=== PATIENT | female | born 1975 | race Caucasian/White ===

== ENCOUNTER → 2019-09-19 09:52 | Outpatient (CLI) | payer BC, SELFPAY ==
[2019-09-20 08:08] LABS: COVID19 Sendout Not Detected (Not Detect)
== END ==
PROVIDERS: Visit Provider Nurse Practitioner
DX: Z01.812 Encounter for preprocedural laboratory examination (principal)
CPT/HCPCS: 87635

== ENCOUNTER 2019-09-22 10:14 | Day surgery (SDC) | payer BC, SELFPAY ==
[2019-09-14 10:54] VITALS: BMI 50.9
[2019-09-22] VITALS (23 sets, daily range): BP systolic 114–152; BP diastolic 62–95; PULSE 73–107; RESP 10–25; TEMP 35.6–36.7; O2SAT 90–99; BMI 51.3
--- NOTE | 2019-09-22 | DI.RAD.S_ITS ---
PROCEDURE: XR CERVICAL SPINE 2V OR 3V INDICATIONS: C5-6 ACDF mobi C TECHNIQUE: 2 view(s) of the cervical spine were acquired. COMPARISON: None. FINDINGS: Bones: Immediate postoperative evaluation targeted at C5-C6 showing an articulated disc intervertebral disc prosthesis at this level, centrally positioned. Soft tissues: No prevertebral soft tissue swelling. IMPRESSION: Normal alignment established after anterior discectomy and intervertebral disc prosthesis placement at C5-6. Dictated by: Robles Chowdhury M.D. on 09/22/2019 at 13:28 Approved by: Robles Chowdhury M.D. on 09/22/2019 at 13:30
[2019-09-22] MEDS: LACTATED RINGERS 1,000 ML 42 ML IV (10:47)
--- NOTE | 2019-09-22 10:49 | P.HP_ITS ---
History of Present Illness History of Present Illness Date Patient Seen: 09/22/19 Time Patient Seen: 10:49 Chief complaint: Cervical Fusion Anterior *OPB* Narrative: 43-year-old female complaining of pain throughout her entire spine. She always has pain in the left side of her neck that now was been radiating into her left arm along the biceps to the palm of her hand. She gets numbness and tingling in the same distribution. She feels stiff in the neck and has limited range of motion. She also gets a sharp pain across the broad aligned the middle of the thoracic spine when her neck and thoracic pain increases she gets blurred vision. She denies bowel or bladder changes. She has been working with a chiropractor for years. Patient History Medical History Anxiety (Acute) Asthma (Acute) Depression (Acute) Eustachian tube disorder (Acute) Neck pain (Acute) Numbness and tingling (Acute) SUNNY on CPAP (Acute) Psoriasis (Acute) Seasonal allergies (Acute) Spinal arthritis (Acute) Surgical History History of bilateral tubal ligation (Acute 2006) History of tonsillectomy and adenoidectomy (Acute) Hx of breast reduction, elective (Acute 2010) Family & Social History Social History: household members significant other Prior Living Arrangements Apartment/Condo Safety & Behavioral: Feels Safe in Current Yes Environment Been Physically Hurt or No Threatened By a Person Suicidal Ideation Description None Suicide Plan Description No Plan Tobacco & Substance use: Smoking Status Never smoker alcohol intake former Substance Use Type does not use Meds Home Medications and Allergies Home Medications Medication Instructions Recorded Confirmed Type albuterol sulfate [ProAir HFA] 2 puff INHALATION Q4-6H PRN 09/14/19 09/22/19 History tevkefi-kwamhoncbkxne-enntfozw 3 tab PO DAILY 09/14/19 09/22/19 History [Excedrin Migraine] fluoxetine 60 mg PO BEDTIME 09/14/19 09/22/19 History montelukast 10 mg PO BEDTIME 09/14/19 09/22/19 History cholecalciferol (vitamin D3) 125 mcg PO DAILY 09/22/19 09/22/19 History [Vitamin D3] Allergies Allergy/AdvReac Type Severity Reaction Status Date / Time Penicillins Allergy Severe Hives Verified 09/22/19 10:38 Sulfa (Sulfonamide Allergy Mild Hives, Verified 09/22/19 10:38 Antibiotics) vomiting Review of Systems Constitutional Constitutional: Denies chills and Denies fever(s) Respiratory Respiratory: Denies cough Exam Const Orientation: alert and oriented x3 Resp Auscultation: clear to auscultation bilaterally Cardio Rate: regular rate Rhythm: regular rhythm Back/Spine/Pelvis Other: Tender along the left lower cervical paraspinals and superior trapezius. 5/5 motor both upper extremities except 4/5 left management trainee marketing. Decreased sensation left biceps and palm and middle finger. 2+ reflexes both upper extremities. Negative Adkins's. Objective Imaging Cervical x-rays: My impression: From 09/13/2018 shows collapse of the disc with kyphosis and anterior osteophytes at C5-6. 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 C3-4: Minimal disc bulge mild central stenosis. C4-5: Minimal disc bulge, no neural compression C5-6 large left-sided disc herniation with left- sided cord flattening moderate central and severe left foraminal stenosis. C6-7 and C7-T1 are open. Assessment & Plan Assessment & Plan narrative: Cervical disc herniation with radiculopathy. She has failed conservative management and has weakness in the arm. Plan is for a C5-6 anterior cervical diskectomy and artificial disc replacement. Morbid obesity with a BMI over 50. Due to her morbid obesity she is at higher risk of medical complications as well as airway issues with surgery. I plan on keeping her overnight because of this. This will also increase the difficulty of the surgery with increased time and deeper retractors with limited mobility. COVID-19 COVID-19 status: Negative Result date/Date tested (Pos, Neg/Pending): 09/19/19
--- NOTE | 2019-09-22 11:19 | P.OP_ITS ---
Operative Date/Time/Diagnoses Date of procedure: 09/22/19 Time of procedure: 12:57 Pre-op diagnosis: Cervical disc herniation with radiculopathy Morbid obesity, BMI greater than 50 Post-op diagnosis: same Procedure & Clinicians Procedure: C5-6 anterior cervical diskectomy and artificial disc replacement Use of microscope Same procedure as scheduled: Yes Indications: [age] year old female with intractable pain from cervical disc herniations. They had failed conservative management and requested operative intervention. Risks and benefits of surgery were discussed and appropriate consents were obtained. Surgeon: Casey Farmer Factory Hand: Sidra Wade Anesthesia Type: General Operative Notes Findings: None Closure Type: primary Specimen(s): none sent Prosthetic devices, grafts, tissues, transplants, or devices: Diana Mobi-C Estimated Blood Loss (mL): 5 Procedure in detail: Patient was brought to the operating room and intubated on the table. A time-out was performed. Preoperative antibiotics were given. The neck was prepped and draped in the standard sterile fashion. Using a skin fold, we made a 3 cm oblique incision on the left side. We used Bovie to go through the platysma and then did a standard anterolateral blunt dissection down to the precervical fascia. Fascia was nicked and elevated up. A marker was placed and x-ray was taken for localization. We then subperiosteally elevated up the longus colli muscles. Self-retaining retractors were placed. Grandview pins were placed under x-ray guidance to be parallel to the endplates. We then brought in the microscope. A scalpel used to perform an annulotomy. We then used a combination of pituitaries and curettes and Kerrison to perform a complete anterior diskectomy at C5-6. We took down the PLL and used Kerrison to remove any posterior disc material and osteophytes. At the end we could from the nerve hook cephalad caudally and out the foramen and everything was opened. We distracted open with the parallel special forces senior sergeant. We then used the horseshoes for sizing. We then used the trials. We then inserted 17 x 15 x 5 size Mobi-C artificial disc replacement under fluoroscopic guidance for positioning. The traction was released and x-ray was checked again. The self-retaining retractors and Grandview pins were removed and final x- rays taken. The wound was irrigated. There was no bleeding. The carotid was beating nicely. The platysma was closed. The superficial was closed. The skin was closed. A sterile dressing was placed. They were then extubated and brought to recovery room with no complications. Please note that due to the patient's morbid obesity we had a much more complex dissection for approach than normal. We used much deeper retractors than normal. This greatly limited our mobility working around the disc. We were a lso very limited in our visualization with fluoroscopy due to her body habitus. All this increased the complexity and risks of this case as well as increased the time by approximately 50%. She also will need to stay as an inpatient overnight for airway issues. Complications: none Post-operative Condition: stable Disposition: PACU Plan for aftercare: Overnight admission. Plan to discharge tomorrow.
[2019-09-22] MEDS: CLINDAMYCIN 900 MG/50 ML PIGGYBACK 50 MG IV ×2 (11:43→19:35)
--- NOTE | 2019-09-22 12:02 | SUR.OPER ---
Supine on padded OR bed, head on gel donut, arm padded and tucked at side, legs uncrossed, safety belt at thigh, tape over blanket over lower legs .
[2019-09-22] MEDS: BUPIVACAINE 0.25% W/ EPI 30 ML VIAL INJ (12:10)
[2019-09-22] MEDS: THROMBIN (RECOMBINANT) 5,000 UNIT VIAL 5000 UNIT TOP (12:10)
[2019-09-22] MEDS: SODIUM CHLORIDE 0.9% 1,000 ML, GENTAMICIN 80 MG IRR (12:11)
[2019-09-22] MEDS: HYDROMORPHONE 2 MG INJ IV ×2 (13:22→13:40)
[2019-09-22] MEDS: ONDANSETRON 4 MG/2 ML INJ IV (13:23)
[2019-09-22] MEDS: LACTATED RINGERS 1,000 ML 125 ML IV (14:42)
[2019-09-22] MEDS: METOCLOPRAMIDE 10 MG/2 ML INJ IV (14:56)
--- NOTE | 2019-09-22 15:33 | PC.NURSE ---
1430: Received patient from PACU, awake, alert, and pleasantly calm on O2 at 4L via NC. Soft collar in place, dressing to anterior neck, CDI. Oriented to room, environment, and plan of care. SCD placed upon arrival. VSS and afebrile. (Zeus) at bedside providing supportive care. Report given to Yuko BERNAL.
[2019-09-22] MEDS: NAPROXEN 250 MG TABLET 500 MG PO (16:58)
[2019-09-22] MEDS: SENNOSIDES 8.6 MG TABLET 17.2 MG PO (20:44)
[2019-09-22] MEDS: GABAPENTIN 300 MG CAPSULE PO (20:44)
[2019-09-22] MEDS: FLUoxetine 20 MG CAPSULE 60 MG PO (20:44)
[2019-09-22] MEDS: MONTELUKAST 10 MG TABLET PO (20:44)
[2019-09-22] MEDS: DOCUSATE 100 MG CAPSULE PO (20:44)
[2019-09-23] MEDS: LACTATED RINGERS 1,000 ML 125 ML IV (00:46)
[2019-09-23 04:15] VITALS: BP 117/89; PULSE 79; RESP 18; TEMP 36.7; O2SAT 96
[2019-09-23] MEDS: CLINDAMYCIN 900 MG/50 ML PIGGYBACK 50 MG IV (04:48)
[2019-09-23 07:00] VITALS: BP 122/70; PULSE 85; RESP 16; TEMP 36.7; O2SAT 97
--- NOTE | 2019-09-23 08:09 | PM.PNPO.1 ---
Subjective Subjective Date Patient Seen: 09/23/19 Time Patient Seen: 08:09 Interval history: She is doing very well. Neck pain is mild and under control. No problems swallowing. Arms feel good. Exam Vital Signs (past 8 hours): - 09/23/19 04:15 Temperature 98.0 F Pulse Rate 79 Respiratory Rate 18 Blood Pressure 117/89 Pulse Oximetry 96 Oxygen Delivery Method Nasal Cannula Oxygen Flow Rate 1 Const Orientation: alert and oriented x3 Back/Spine/Pelvis Other: CDI. 5/5 motor both upper extremities. Assessment & Plan Post-op Postoperative Procedures: Procedures Operation Date: 09/22/19 12:15 Actual Procedures Side Surgeon p C56 anterior cervical discectomy and artificail disc replacement Casey Farmer MD she is doing well. Plan to discharge home today.
[2019-09-23] MEDS: NAPROXEN 250 MG TABLET 500 MG PO (09:37)
[2019-09-23] MEDS: CHOLECALCIFEROL (VITAMIN D3) 5,000 UNIT TABLET 5000 UNIT PO (09:37)
[2019-09-23] MEDS: DOCUSATE 100 MG CAPSULE PO (09:37)
--- NOTE | 2019-09-23 09:39 | OT.IP.EVAL ---
Current Diagnoses Morbid (severe) obesity due to excess calories (09/22/19) Spondylosis without myelopathy or radiculopathy, lumbar region (09/22/19) Other cervical disc displacement, unspecified cervical region (09/22/19) Other intervertebral disc degeneration, thoracic region (09/22/19) Surgery Performed Operation Date: 09/22/19 12:15 Actual Procedures p C56 anterior cervical discectomy and artificail disc replacement - Casey Farmer MD Past Medical History (Last Updated 09/22/19 @ 13:53 by Lu Esquivel RN) Anxiety (Acute) Asthma (Acute) Depression (Acute) Eustachian tube disorder (Acute) Neck pain (Acute) Numbness and tingling (Acute) Obesities, morbid (Acute) Obesity (Acute) SUNNY on CPAP (Acute) Psoriasis (Acute) Seasonal allergies (Acute) Spinal arthritis (Acute) Surgical History (Last Reviewed 09/22/19 @ 10:50 by Casey Farmer MD) History of bilateral tubal ligation (Acute 2006) History of tonsillectomy and adenoidectomy (Acute) Hx of breast reduction, elective (Acute 2010) Occupational Therapy Inpatient Evaluation/Re-Eval M1 PT/OT-IP Prior Functional Status Start: 09/23/19 08:22 Freq: NEEDED Status: Active Protocol: Document 09/23/19 10:28 CGR (Rec: 09/23/19 10:36 CGR [email or web address]) Medical Review Prior Functional Status Medical History Reviewed Yes Communication Pt is an effective verbal communicator. Mobility and Gait Pt was IND for all functional mobility prior to admit. Activities of Daily Living and IADL's Pt states she was IND for all ADLs but used a shower chair for bathing. Social History Household Members significant other Living Arrangements Apartment/Condo Number of Floors (Floors) One Floor Number of Stairs To Enter/Railing? Pt has 15 stairs up to the second floor. 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 M2 OT-IP Current Condition Start: 09/23/19 10:28 Freq: Status: Active Protocol: Document 09/23/19 10:28 CGR (Rec: 09/23/19 10:36 CGR [email or web address]) Occupational Therapy Current Condition Current Condition Evaluation Date 09/23/19 Treatment Diagnosis C6 ACDF Diagnosis Onset Date 09/22/19 Post Operative Precautions Cervical Spine Precautions Soft Collar for Comfort,No Heavy Lifting,Log Roll M3 OT- IP Subjective and Pain Start: 09/23/19 10:28 Freq: Status: Active Protocol: Document 09/23/19 10:28 CGR (Rec: 09/23/19 10:36 CGR [email or web address]) OT- Subjective Occupational Therapy Visit Type Type Initial Evaluation Visit Start Time 09:16 Visit Stop Time 09:39 Total Visit Minutes 23 Notes Pt getting dressed as OT entered Occupational Therapy Visit Comments Patient Comments I am ready to go home. OT Pain Assessment Pain When Pain Assessed During Mobility Pain Present Pain Present Pain Reported Location Anterior Neck Intensity 1 Scale Used Numeric (0 - 10) Management Techniques Modification of Treatment,Re- positioning,Timing of Activity with Medications M4 OT- IP ADL's Start: 09/23/19 10:28 Freq: Status: Active Protocol: Document 09/23/19 10:28 CGR (Rec: 09/23/19 10:36 CGR [email or web address]) OT SOC-Ovgg-Bkgnflz Comments OT Self-Feeding Comments Not meal time OT ADL-Grooming General Evaluation Grooming Ability Independent Comments OT Grooming Comments Simulated standing at sink OT ADL-Oral Care General Eval Oral Care Ability Independent Comments Oral Care Comments Simulated standing at sink OT ADL-Dressing General Eval Upper Body Dressing Ability Independent Lower Body Dressing Ability Independent Areas Needing Assistance Retrieving/Set-up of Clothing, Underpants/Brief,Pants/Shorts, Socks Comments OT Dressing Comments Pt donned sitting in chair and sitting EOB for socks. OT ADL-Toileting General Evaluation Toileting Ability Independent Comments OT Toileting Comments Simulated seated on toilet OT ADL-Bathing Comments OT Bathing Comments not performed M5 OT- IP IADL's Start: 09/23/19 10:28 Freq: Status: Active Protocol: Document 09/23/19 10:28 CGR (Rec: 09/23/19 10:36 CGR [email or web address]) OT-Instrumental Activities of Daily Living Deficits IADL Deficits Identified No Deficits Home Safety Awareness Awareness of Need for Assistance at Home Good Awareness Ability to Problem Solve Emergency Able to Problem Solve Situations Medication Management Medication Management No Deficits Identified Money Management Money Management No Deficits Identified Meal Preparation Meal Preparation No Deficits Identified Tanning Drum Operator Tanning Drum Operator No Deficits Identified Driving Driving Caregiver Provides Assist M6 OT- IP Functional Cognition Start: 09/23/19 10:28 Freq: Status: Active Protocol: Document 09/23/19 10:28 CGR (Rec: 09/23/19 10:36 CGR [email or web address]) Cognitive Factors Limiting Selfcare Function Cognitive Ability Level of Alertness Alert Patient Orientation Name,Age,Birthday,Month,Date, Year,Day of Week,Place, Situation Attention Span Ability Capable of Focused Attention, Capable of Sustained Attention Ability to Follow Commands Able to Follow Multi-Step Commands Memory Description No Deficits Noted Safety Awareness No Deficits Noted Problem Solving Ability No deficits Noted Executive Function Ability No Deficits Noted Abstract Thinking Ability No Deficits Noted OT- Vision and Hearing OT- Hearing Assessment OT- Hearing Assessment WFL OT- Vision Assessment Visual Acuity Glasses All The Time Visual Attentiveness WFL Occular Pursuits WFL Visual Convergence WFL M7 OT- IP Mobility and Balance Start: 09/23/19 10:28 Freq: Status: Active Protocol: Document 09/23/19 10:28 CGR (Rec: 09/23/19 10:36 CGR [email or web address]) OT- Bed Mobility Assessment Rolling Type of Rolling Log Rolling,Roll to Right,Roll to Left Level of Assistance Independent Supine to Sit Supine to Sit Assist Independent Sit to Supine Sit to Supine Assist Independent Scooting Scooting to Edge of Bed Independent OT-Transfer Assessment Sit to and From Stand Sit to and from Stand Independent Transfers Transfer Ability Independent Technique Transfer Destination Bed,Chair,Toilet Transfer Technique Stand Step Pivot Comments Mobility Comments Pt mobilized aorund the room and bathroom without assist safely OT- Balance Assessment Sitting Balance and Reactions Static Sitting Balance Ability Normal Dynamic Sitting Balance Ability Normal M8 OT- IP Objective Assessments Start: 09/23/19 10:28 Freq: Status: Active Protocol: Document 09/23/19 10:28 CGR (Rec: 09/23/19 10:36 CGR [email or web address]) OT Gross Range of Motion Upper Extremity Range of Motion Assessment Within Functional Limits OT Strength Upper Extremity Strength Assessment Within Functional Limits Comments Strength Comments Grossly 4+/5 OT- Coordination Assessment Upper Extremity Finger to Nose Test Within Functional Limits Finger Tapping Test Within Functional Limits OT-Muscle Tone Assessment Muscle Tone WNL Yes OT Sensation Assessment Edema Edema Absent M9 OT- IP Assessment and Plan Start: 09/23/19 10:28 Freq: Status: Active Protocol: Document 09/23/19 10:28 CGR (Rec: 09/23/19 10:36 CGR [email or web address]) OT Summary Assessment and Plan Potential Rehabilitation Potential Excellent Analytic Complexity at Evaluation Low Summary OT Impairments Pain Progress Towards Goals Safe For Discharge,Goals Met Assessment Summary Pt presents as a low complexity evaluation. Pt states she feels better than prior to sx. No further OT needs. Frequency of Treatment Frequency Of Treatment Discharge Discharge Recommendations OT Discharge Recommendations Home Transportation Needs at Discharge Private Vehicle
--- NOTE | 2019-09-23 10:56 | PT.IIE ---
Current Diagnoses Morbid (severe) obesity due to excess calories (09/22/19) Spondylosis without myelopathy or radiculopathy, lumbar region (09/22/19) Other cervical disc displacement, unspecified cervical region (09/22/19) Other intervertebral disc degeneration, thoracic region (09/22/19) Surgery Performed Operation Date: 09/22/19 12:15 Actual Procedures p C56 anterior cervical discectomy and artificail disc replacement - Casey Farmer MD Surgical History (Last Reviewed 09/22/19 @ 10:50 by Casey Farmer MD) History of bilateral tubal ligation (Acute 2006) History of tonsillectomy and adenoidectomy (Acute) Hx of breast reduction, elective (Acute 2010) Medical History (Last Updated 09/22/19 @ 13:53 by Lu Esquivel RN) Anxiety (Acute) Asthma (Acute) Depression (Acute) Eustachian tube disorder (Acute) Neck pain (Acute) Numbness and tingling (Acute) Obesities, morbid (Acute) Obesity (Acute) SUNNY on CPAP (Acute) Psoriasis (Acute) Seasonal allergies (Acute) Spinal arthritis (Acute) Physical Therapy Inpatient Evaluation/Re-Eval M1 PT/OT-IP Prior Functional Status Start: 09/23/19 08:22 Freq: NEEDED Status: Discharge Protocol: Document 09/23/19 10:42 (Rec: 09/23/19 10:56 [email or web address]) Medical Review Prior Functional Status Medical History Reviewed Yes Diet/Fluid Consistency Regular Communication Pt is an effective verbal communicator. Mobility and Gait Pt was IND for all functional mobility prior to admit. Activities of Daily Living and IADL's Pt states she was IND for all ADLs but used a shower chair for bathing. She has difficulty to reach down for pericare after toileting and has a weak medical services assistant in general. Significant other tends to assist if needed. Social History Household Members significant other Living Arrangements Apartment/Condo Number of Floors (Floors) One Floor Number of Stairs To Enter/Railing? 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 She lives with her significant other Zeus who is going to take a week off to assist pt. Pt also has a 18 yo step son who lives with them. M2 PT-IP Current Condition Start: 09/23/19 08:22 Freq: NEEDED Status: Discharge Protocol: Document 09/23/19 10:42 (Rec: 09/23/19 10:56 [email or web address]) Physical Therapy Current Condition Current Condition Evaluation Date 09/23/19 Treatment Diagnosis ACDF C5-6, tingling and numbness on L side Onset Date 09/22/19 Precautions Cervical Spine Precautions Soft Collar for Comfort,Rigid Collar,No Heavy Lifting,Log Roll Weight Bearing Status Weight Bearing Status Full Weight Bearing M3 PT-IP Subjective Start: 09/23/19 08:22 Freq: NEEDED Status: Discharge Protocol: Document 09/23/19 10:42 (Rec: 09/23/19 10:56 [email or web address]) Subjective Physical Therapy Visit Type Type Initial Evaluation Visit Start Time 08:45 Visit Stop Time 09:16 Total Visit Minutes 31 Number of SLATE ROOFER HELPER Visits 0 Physical Therapy Visit Comments Patient Comments Pt denies neck pain but with residual numbness to L arm Patient Goals to return home with S.O. Therapy Pain Assessment Pain When Pain Assessed During Mobility Pain Present Pain Present Denied Pain M4 PT-IP Mobility and Gait Start: 09/23/19 08:22 Freq: NEEDED Status: Discharge Protocol: Document 09/23/19 10:42 (Rec: 09/23/19 10:56 [email or web address]) PT-Bed Mobility Assessment Rolling Type of Rolling Log Rolling,Roll to Right Level of Assist Standby Assistance Supine to Sit Supine to Sit Standby Assistance Scooting Scooting to Edge of Bed Standby Assistance PT-Transfer Assessment Sit to and From Stand Sit to and from Stand Standby Assistance,Use of Upper Extremities Equipment Transfer Assistive Device None Orthotic/Prosthetic Devices or Brace: Yes Transfers Transfer Destination Bed,Chair Transfer Technique Stand Step Pivot Transfer Ability Level of Assist Independent,Standby Assistance ,Use of Upper Extremities Comments Mobility Comments Pt was in bed upon PT arrival. BP at 131/ 76 SpO2 94 % HR 87 . Pt denied pain/ discomfort except residual numbness on L arm. Pt has slight overall weakness on L shoulder but sensation test was intact to pressure and light touch. She was able to log roll to R side and push up from sidelying position and sat at EOB with SBA. She then stood up without using arms and amb to sink counter for soft collar fitting. She was able to travis/ doff with proper fitting without standing support. She then walked around [facility] and completed 15 steps with R rail up and L rail down SBA. Pt appeared to be very steady and WFL gait speed. She returned to her room and sat in chair comfortably. Vitals remain normal HR went up to 116 with slight SOB. Pt is safe to be d /c home at this point. Gait Assessment Gait Gait Assistance Required: Standby Assistance Distance (Feet) 360 Able to Maintain Weight Bearing Status Yes During Gait Assistive Devices Assistive Device None Orthotic/Prosthetic Devices or Brace: Yes Gait Deviations General Gait Pattern Within Normal Limits Factors Limiting Gait Function Factors Limiting Gait Function Respiratory Distress Comments Gait Comments see mobility comments Stair Climbing Assessment Evaluation Level of Assist On Stairs Standby Assistance Devices Stair Climbing Assistive Devices Right Railing Technique/Endurance Stair Climbing Direction Ascend and Descend Stair Climbing Technique Step to Step Number of Steps Climbed 15 Query Text: Stair Climbing Set # Repetitions (reps) 2 Comments Stair Climbing Comments R rail up, L rail down PT-Balance Assessment Sitting Balance and Reactions Static Sitting Balance Ability Normal Dynamic Sitting Balance Ability Normal Standing Balance and Reactions Static Standing Balance Ability Normal Dynamic Standing Balance Ability Normal Device Used none M5 PT-IP Objective Assessments Start: 09/23/19 08:22 Freq: NEEDED Status: Discharge Protocol: Document 09/23/19 10:42 (Rec: 09/23/19 10:56 [email or web address]) Orientation Orientation/Cognition Level of Alertness Alert Orientation Name,Age,Birthday,Month,Date, Year,Day of Week,Place, Situation Language Function Ability No Deficits Noted Safety Awareness Understands Safety Issues Memory Description No Deficits Noted Gross Range of Motion Upper Extremity ROM Assessment Within Functional Limits Lower Extremity ROM Assessment Within Functional Limits Strength Upper Extremity Strength Assessment Left Impaired Shoulder 4/5 Elbow 5/5 Wrist 5/5 Hand 4+/5 Lower Extremity Strength Assessment Within Functional Limits Coordination Assessment Gross Coordination Gross Coordination WNL Sensation Assessment Sensation Gross Sensation WNL Muscle Tone Muscle Tone WNL Yes M6 PT-IP Treatment Start: 09/23/19 08:22 Freq: NEEDED Status: Discharge Protocol: Document 09/23/19 10:42 (Rec: 09/23/19 10:56 [email or web address]) Physical Therapy Treatment Education Education Provided Precautions,Post-Op Packet, Safety Brace Education Nahomy Ramírez M7 PT-IP Assessment and Plan Start: 09/23/19 08:22 Freq: NEEDED Status: Discharge Protocol: Document 09/23/19 10:42 (Rec: 09/23/19 10:56 [email or web address]) PT Summary Assessment and Plan Potential Rehabilitation Potential Excellent Status of Condition at Evaluation Stable Summary Impairments Pain,ROM,Strength,Balance, Sensation,Bed Mobility, Transfers,Activity Tolerance Progress Towards Goals Safe For Discharge Assessment Summary This is a low complexity evaluation only for this 43 yo female s/p POD 1 ACDF at C5-6 . Upon assessment, no sensation deficited noted to LT and pressure but there's slight weakness at L shoulder and medical services assistant strength. She has good understanding on post op precautions and able to travis/ doff c/s collar independently. She also completed stair climbing with SBA. Pt is safe to D/c home with S.O. 's assistance as needed . Frequency of Treatment Frequency Of Treatment Discharge Recommendations To Nursing Amount of Assist Needed Standby Assistance Discharge Recommendations PT Discharge Recommendations Home with Assistance Transportation Needs at Discharge Private Vehicle
--- NOTE | 2019-09-23 11:17 | CM.DANOTE ---
DCP: Case received, EMR reviewed and met with patient. Introduced self and role. Was able to meet with patient to obtain information regarding her baseline activity level prior to surgery. DCP assessment completed with information currently available. Patient is an 81 year old female who admitted yesterday morning to the care of the orthopedic team. PCP: Dr. Harris. Payer: confirmed: [employer] Out of [facility]. Patient came to the hospital for a surgical procedure. She had C5-6 anterior cervical diskectomy. Patient has had history of chronic neck and back pain. Met with patient in her room. She is alert and oriented, pleasant. She is independent, and resides with her partner, Casey Haji. She is currently employed. She has two grown children that are in their 20s, and live locally. P: Patient is to be discharged home today. Rhiannon Navarro RN/Chemical Compounder Helper
== END 2019-09-23 10:55 | disposition home or self-care (01) ==
LOC: OR 10:31 → AC 13:09
PROVIDERS: PCP Family Medicine; Referring Provider Orthopaedic Surgery; Visit Provider Orthopaedic Surgery
PROC: (CPT 22856; principal; 2019-09-22 12:15)
DX: M50.122 Cervical disc disorder at C5-C6 level with radiculopathy (principal); E66.01 Morbid (severe) obesity due to excess calories
CPT/HCPCS: 22856; 72040; 76000; 97161; 97165; 97535; C1776; J0330; J1100; J1170; J2250; J2405; J2704; J2765; J3010